=== PATIENT | female | born 1955 | race Caucasian/White ===

== ENCOUNTER → 2018-10-19 | Outpatient (CLI) | payer OTHER, SELFPAY ==
[2018-10-19 17:08] LABS: Hematocrit 43.6 % (37-47); Hemoglobin 14.8 g/dl (12.0-15.0); Mean Corp Hgb Conc 33.9 g/gl (32-36); Mean Corpuscular Hgb 31.6 pg (27.0-32.0); Mean Platelet Vol. 10.3 fl (6.2-12.0); Platelet Count 363 K/mm3 (150-450); RBC Distribution Width CV 12.2 % (11.6-14.6); RBC Distribution Width SD 40.9 fl (35.1-43.9); Red Blood Count 4.69 M/mm3 (4.2-5.4); White Blood Count 10.5 K/mm3 (4.4-11.0)
[2018-10-19 17:09] LABS: Scan Indicated on CBC? Y/N NO
[2018-10-19 17:19] LABS: Follicle Stimulating Hormone 42.3 mIU/mL
[2018-10-19 17:36] LABS: Hemoglobin A1c 8.5 % (4.2-6.3)
[2018-10-24 16:19] LABS: HPV Reflexed? NOT INDICATED
== END | disposition home or self-care (01) ==
LOC: WOBLAB 15:49
PROVIDERS: Visit Provider Obstetrics & Gynecology
DX: N92.6 Irregular menstruation, unspecified (principal); Z12.4 Encounter for screening for malignant neoplasm of cervix
CPT/HCPCS: 36415; 83001; 83036; 85027; 88175; G0145

== ENCOUNTER 2018-11-29 11:55 | Day surgery (SDC) | payer OTHER, SELFPAY ==
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
[2018-11-29] VITALS (8 sets, daily range): BP systolic 96–135; BP diastolic 71–86; PULSE 66–87; RESP 14–16; TEMP 36.3–37.9; O2SAT 92–100; BMI 28.9
--- NOTE | 2018-11-29 13:30 | EMB_PTH ---
PATIENT: PAULETET JEFFRIES LOC: [facility] [place] U#:[id number] AGE/SX: 63/F ROOM: RE11/29/[address]: Dr. eFlisa Jarquin MD : 1955 BED: DIS: 11/29/2018 SPEC #: [id number] RECD: 11/29/18 16:36 STATUS: MARILU JACY #: [id number] EARL: 11/29/18 13:[address]: Felisa Jarquin DEPT: SURGICAL PATHOLOGY RECD BY: Zhao Batista ENTERED: 11/30/18 08:02 SP TYPE: ENDOM BX/C OTHR DR: Dr. Maty Burris MD Tissues: Endometrium, NOS Procedures: Surgery Specimen Level IV HEADER OPERATION: Hysteroscopy, D & C PRE-OP DIAGNOSIS: Ovary cyst, left; endometrial hyperplasia; postmenopausal bleeding TISSUE SUBMITTED: Endometrial curettings MICROSCOPIC DIAGNOSIS Endometrium, curettings: Complex atypical hyperplasia. Rare fragments of benign squamous mucosa. AM:fernando 12/01/18 COMMENT Focal areas are suspicious for endometrial adenocarcinoma, FIGO grade1. Clinical correlation is necessary. Case has been reviewed in consultation with Dr. Benítez who concurs with the above diagnosis. IDC:GREGG MICROSCOPIC DESCRIPTION Slides are reviewed. GROSS DESCRIPTION Received in fixative is one container labeled with the patient's name and designated endometrial curettings. The specimen consists of multiple fragments of hemorrhagic soft tissue that in aggregate measure 2.5 x 2 x 0.1 cm. The entire specimen is submitted in one cassette. / GREGG:fernando 11/30/18 TC:? CPT: 74116
--- NOTE | 2018-11-29 13:43 | DCINST_ITS ---
Discharge Diet: No Restrictions Discharge Activity: May Shower, May Take a Tub Bath May resume sexual activity in: No Restrictions - when comfortable Call your doctor if you observe: Fever of 101 or Higher, Using more than one pad per hour, Uncontrolled pain Additional Instructions: Take Tylenol or ibuprofen as needed for discomfort. Allergies/Adverse Reactions: Allergies No Known Allergies Allergy (Verified 11/22/18 12:55) Medications to take at Discharge Hydroxyzine HCl 50 mg PO Q6H PRN 11/22/18 Lactobacillus Acidophilus [Acidophilus] 1 ea PO QHS 11/29/18 Thiamine HCl [B-1] 100 mg PO QHS 11/29/18 Primary Care Physician: Maty Burris MD [Primary Care Provider] - Test Results: Test results from this visit will be discussed in further detail at your follow- up appointment, if applicable. Please Follow Up With: Felisa Jarquin MD - [phone] When: in 2-3 wk for postoperative follow up visit. Proposed Discharge Date: 11/29/18
--- NOTE | 2018-11-29 16:01 | PCM.OPRPT ---
Report of Operation Date of Procedure: 11/29/18 Pre-Operative Diagnosis: postmenopausal bleeding. thickened endometrial stripe Nabothian cyst of cervix vs cervical fibroid Post-Operative Diagnosis: same Stenotic cervix. Cervical fibroid Surgery/Procedure Performed:: Dilation and curettage. Unable to perform hysteroscopy due to cervical stenosis and fibroid at posterior cervix Description of Surgical Findings:: Findings: Atrophic appearing cervix, stenotic Normal appearing endometrium. Tubal ostia visualized, atrophic Endometrial polyp, friable and removed in multiple pieces. Type of Anesthesia:: IV Sedation Specimen's removed: uterine curettings Drains: radha herman prior to case Estimated Blood Loss (mL): 10 cc Fluids Replaced: LR Description of Procedure: Narrative account After the R,B,Alternatives of the procedure were reviewed with the patient , informed consent was obtained. The patient was taken to the operating room with an IV running and placed in dorsal supine position of the operating table. She was given MAC IV sedation and repositioned to the dorsal lithotomy position and prepped and draped in the usual sterile fashion. A graves speculum was placed into the vagina and the cervix was brought into view. The cervix was atrophic appearing and hegar dilators were opened. A single toothed tenaculum was applied to the anterior lip of the cervix and then to the posterior lip of the cervix to allow cervical dilation. The cervix was then gently probed and sequentially dilated to allow admission of the sharp curette into the endometrial cavity. A sharp curettage was performed and multiple small pieces of tissue were withdrawn and set aside. Due to the presence of a posterior cervical fibroid, the cervix could not be dilated enough to allow the hysteroscopy. Several passes were performed also with the Pipelle. The uterus was probed and sounded to 7 cm with the uterine sound. Excellent hemostasis was noted. The single toothed tenaculum was removed from the cervix and a RayTec was used to remove any remaining tissue and blood from the upper vagina and cervix. The procedure was terminated. The speculum was removed. The patient was returned to dorsal supine position and awakened from IV sedation and transferred to her recovery room bed in stable condition after tolerating the procedure well. Sponge, lap, needle and instrument counts were correct x two. medications given intraoperatively included Toradol given IV. For a complete listing of the medications given intraoperatively, see the anesthesia record. - Complications none - Admit VTE Documentation VTE Present on Admission: No VTE Mechan Device Prophylaxis: SCD's VTE Pharm Prophylaxis ordered?: No
== END 2018-11-29 16:00 | disposition home or self-care (01) ==
LOC: SDC 11:56 → AC 11:57
PROVIDERS: Family Provider Family Medicine; PCP Family Medicine; Referring Provider Obstetrics & Gynecology; Visit Provider Obstetrics & Gynecology
PROC: 0UB98ZZ Excision of Uterus, Via Natural or Artificial Opening Endoscopic (ICD-10-PCS; CPT 58558; principal; 2018-11-29 13:15)
DX: N85.01 Benign endometrial hyperplasia (principal); N88.2 Stricture and stenosis of cervix uteri; F41.9 Anxiety disorder, unspecified; N83.202 Unspecified ovarian cyst, left side; R73.03 Prediabetes
CPT/HCPCS: 58120; 88305; J7120; J2405

== ENCOUNTER 2018-12-27 11:14 | Day surgery (SDC) | payer OTHER, SELFPAY ==
[2018-11-29 12:21] VITALS: BMI 28.9
--- NOTE | 2018-12-21 15:33 | EKG12_ITS ---
Test Reason : PRE-OP Blood Pressure : / mmHG Vent. Rate : 070 BPM Atrial Rate : 070 BPM P-R Int : 134 ms QRS Dur : 088 ms QT Int : 398 ms P-R-T Axes : 057 050 052 degrees QTc Int : 429 ms Normal sinus rhythm with sinus arrhythmia Low voltage QRS Borderline ECG Confirmed by BETTY SALINAS, MAGDALENA ([id number]), mapping editor АЛЕКСАНДР MARTINEZ ([id number]) on 12/26/2018 10:30:58 AM Referred By: Felisa Jarquin Confirmed By:TESHA HERNÁNDEZ MD
[2018-12-21 16:11] LABS: Hemoglobin A1c 6.1 % (4.2-6.3)
[2018-12-21 16:21] LABS: Anion Gap 11 (5-15); BUN 8 mg/dL (7-18); BUN/Creat Ratio 10.8 RATIO (10-20); Calcium,Total 9.4 mg/dL (8.5-10.1); Chloride 104 mmol/L (98-107); Creatinine, Serum 0.74 mg/dL (0.55-1.02); EST Glomerular Filtration Rate 84 mL/min (>60); Est Glom Filt Rate - Afr Amer 102 mL/min (>60); Glucose 77 mg/dL (74-106); Potassium 3.5 mmol/L (3.5-5.1); Sodium Level 140 mmol/L (136-145)
--- NOTE | 2018-12-23 08:05 | HP.PCM_ITS ---
History and Physical Date of Admission: 12/27/18 HISTORY OF PRESENT ILLNESS: On 12/21/2018, Mishel Arriaza, a 63 year old female 1 0 1 0 1, presented for: -- Pre-Op -- Mishel is being seen for pre op visit. Pt to have LAVH/BSO 12-27-18 due to PMB. Medication and allergies are up to date. Surgery papers signed and reviewed with pt. Pt is very nervous and tearful. She states the Vistaril did not help pt. AM As above. here for preop op prior to planned LAVH, BSO. She has had postmenopausal bleeding and prior D and C which showed complex hyperplasia with atypia and focus suspicious for adenocarcinoma FIGO Gr 1. Advised of all. She is extremely anxious re any medical care/procedures and had gone years without any doctor visits. Recent dx with DM and has lost weight, changed diet , and improved her HgbA1C. Vistaril not helpful with her anxiety. Will give RX for Lorazepam for prn use prior to surgery. Reviewed typical behavior of endometrial cancer, and advised very curable. Reminded her that dx may be complex hyperplasia with atypia, but either way the uterus should be removed as up to 33% will progress to endometrial cancer. Reviewed anticipated preop, operative and postop recovery. All questions answered to her satisfaction. here today also for discussion. EB ALLERGIES: No Known Drug Allergies MEDICATIONS HISTORY: Current medications prescribed by our practice are: 1. Prometrium 200 mg capsule, 1 tab po q hs 2. Vistaril 50 mg capsule, 1 po q 6 hr prn anxiety REVIEW OF SYSTEMS: GENERAL - Denies fever, or chills SKIN - Denies skin changes EYES - Denies visual changes EARS - Denies difficulty hearing NOSE - Denies nasal congestion or bleeding MOUTH - Denies sore throat or difficulty swallowing NECK - Denies pain or swelling RESPIRATORY - Denies shortness of breath or wheezing CARDIOVASCULAR - Denies palpitations or chest pain GASTROINTESTINAL - Denies nausea, vomiting, diarrhea, constipation GENITOURINARY - Denies dysuria, frequency of urination, incontinence of urine MUSCULOSKELETAL - Denies joint or muscle pain NEUROLOGICAL - Denies localized numbness or weakness PSYCHIATRIC - Denies depression or anxiety ENDOCRINE - Denies heat or cold intolerance, weight loss or gain HEMATO-IMMUNOLOGIC - Denies excessive bleeding with cuts SURGICAL HISTORY: 1. C section 1992 2. 11/29/2018 Dilation and curettage Felisa Jarquin M.D. PMB, thickened endometrial stripe on sono. Cervical fibroid noted. (unable to do the hysteroscopy 2/2 stenotic cervix and fibroid) 3. 11/29/2018 Elizabeth Jarquin M.D. 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 Drug Use - denies use of street drugs Sexual Activity - Hours Worked - 40 hours per week Spouse-Sig Other Name - Sanjuanita Spouse-Sig Other Occupation - retired Control - Vasectomy PHYSICAL EXAMINATION BP- 150/90 Sitting, Right arm, regular cuff Temp- 98.0 Taken Orally Weight- 145.80 lbs Height- 61.00 inch BMI:27.61 CONSTITUTIONAL - NAD, well nourished, and well developed HEENT - Normocephalic, PERRLA, EOMI NECK - no nuchal rigidity EXTREMITIES - No edema or calf tenderness NEUROLOGICAL - Cranial nerves II-XII grossly intact PSYCHIATRIC - A and O to time, place, person, mood and affect ASSESSMENT: 1. Endometrial Hyperplasia, Unspecified 2. Postmenopausal Bleeding PLAN BY DIAGNOSIS: 1. Endometrial Hyperplasia, Unspecified and Postmenopausal Bleeding Path results from Moses and C reviewed: complex hyperplasia with atypia (33% progress to endometrial cancer) and focus suspicious for adenocarcinoma FIGO Gr 1. Advised hysterectomy and BSO. TANYA BSO planned. Reviewed surgical procedure, as well as anticipated preop and postop recovery, activity restrictions. Extremely anxious re procedure, dx. Wanting to RTW LAITH within 2 wk after her surgery. Expresses frustration she will not know dx until final path results back. Requesting another HgbA1C level prior to surgery, along with preop labs and ECG Lorazepam 1 mg tabs to be called in for prn use anxiety prior to procedure. All questions answered to her satisfaction, consents signed. Plan LAVH, BSO as scheduled. RTO in 2 wk for postop check. The visit was approximately 30 minutes in length with most of the time spent in discussion and counseling. 2. Unspecified Ovarian Cyst, Left Side Simple appearing cyst by sono prior Planned BSO New Prescription(s): lorazepam 1 mg tablet 1 po q 6 hr prn 20 Refills 0 Medication(s) Stopped/Reason: multivitamin tablet - No Longer Needed
[2018-12-27] VITALS (11 sets, daily range): BP systolic 112–148; BP diastolic 53–76; PULSE 58–83; RESP 14–16; TEMP 36–36.6; O2SAT 93–100; BMI 27.1
--- NOTE | 2018-12-27 | HYST_PTH ---
PATIENT: PAULETTE JEFFRIES LOC: [facility] – [place] U#:[id number] AGE/SX: 63/F ROOM: RE12/27/[address]: Dr. Felisa Jarquin MD : 1955 BED: DIS: 12/28/2018 SPEC #: [id number] RECD: 12/27/18 15:25 STATUS: MARILU JACY #: [id number] EARL: 12/27/18 00:[address]: Felisa Jarquin DEPT: SURGICAL PATHOLOGY RECD BY: Hong Maloney ENTERED: 12/28/18 08:05 SP TYPE: HYSTERECT OTHR DR: Dr. Maty Burris MD Tissues: Uterus, NOS Procedures: Surgery Specimen Level V HEADER OPERATION: Hysterectomy, lap-assisted vaginal, BSO PRE-OP DIAGNOSIS: Endometrial hyperplasia; postmenopausal bleeding TISSUE SUBMITTED: Uterus, bilateral fallopian tubes MICROSCOPIC DIAGNOSIS Uterus, hysterectomy: Cervix - nabothian cysts and mild chronic inflammation. Endometrium - focal simple hyperplasia without atypia. Myometrium - leiomyomas and adenomyosis. Right fallopian tube - no pathologic change. Right ovary - corpora albicantia. Left fallopian tube - no pathologic change. Left ovary - corpora albicantia and benign inclusion cyst. AM:fernando 12/29/18 COMMENT Case has been reviewed in consultation with Dr. Benítez who concurs with the above diagnosis. IDC:GREGG MICROSCOPIC DESCRIPTION Slides are reviewed. GROSS DESCRIPTION Received in fixative is one container labeled with the patient's name and designated uterus, bilateral fallopian tubes. The specimen consists of a hysterectomy specimen consisting of uterus with cervical and attached bilateral fallopian tubes and ovaries. The uterus with cervix weighs 91 gm and measures 8.5 x 6 x 4 cm. The serosal surface is hou, glistening. The ectocervical mucosa is unremarkable. The external os is oval in contour. The endocervical canal measures 3.5 cm in length and the endocervical mucosa is hou, glistening and unremarkable. The triangular endometrial cavity measures 4 cm in length and up to 2.5 cm in width. The endometrium is hou, glistening without any mass lesion and measures 0.1 cm in thickness. Sections of the uterine wall reveal a few nodular masses. The largest mass measures 1.5 cm in greatest dimension. Sections of these masses reveal hou whorled cut surfaces without areas of hemorrhage, necrosis or cystic degeneration. The involved uterine wall measures up to 2.5 cm in thickness. The right fallopian tube measures 6 cm in length and 0.5 cm in diameter. The fimbrial end is identified. The right ovary measures 1.5 x 1 x 1 cm. Sections of fallopian tube and ovary reveals unremarkable cut surfaces. No tubo-ovarian adhesions are identified. The left fallopian tube is similar appearance to right and measures 6 cm in length and 0.6 cm in diameter. The left ovary measures 1.5 x 1.5 x 1 cm. Sections of fallopian tube and ovary reveals unremarkable cut surfaces. Also present in the container is a detached piece of soft tissue measuring 2 x 1 x 0.5 cm. Hat Brim Curler sections are submitted in 12 cassettes as follows: 1 - anterior cervix, 2 - posterior cervix, 3-5 - anterior uterine wall, 68 - posterior uterine wall (the entire endometrium is submitted), 9 - nodular masses, 10 - right fallopian tube and ovary, 11 - left fallopian tube and ovary, 12 - detached piece of soft tissue. / GREGG:fernando 12/28/18 TC:1 CPT: 79694
[2018-12-27 12:26] LABS: Bedside Glucose 61 mg/dL (70-110)
[2018-12-27] MEDS: Lactated Ringers 1,000 ML 100 ML IV (12:45)
--- NOTE | 2018-12-27 13:38 | PCM.DC.VHY ---
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 Call your doctor if you observe: Fever of 101 or Higher, Inability to have a bowel movement, Using more than one pad per hour, Uncontrolled pain Change Dressing in (Days):: 7 Remove Dressing in (days):: 7 Cleanse incision/area with: Soap & Water, Keep Dressing Clean & Dry Additional Instructions: Take Tylenol 500-1000 mg every 8 hr by mouth for milder pain. Add OxyIR 1-2 tablets by mouth every 6 hrs for more severe pain. You may also take EITHER Two Aleve or two Ibuprofen 200 mg tablets by mouth every 8 hrs for pain as needed Allergies/Adverse Reactions: Allergies No Known Allergies Allergy (Verified 12/20/18 13:43) Medications to take at Discharge Lactobacillus Acidophilus [Acidophilus] 1 ea PO QHS 11/29/18 Thiamine HCl [B-1] 100 mg PO QHS 11/29/18 Cyanocobalamin (Vitamin B-12) [Vitamin B-12] 1,000 mcg PO QODAY 12/20/18 Docusate Sodium [Colace] 100 mg PO BID #30 cap 12/27/18 Naproxen [Naprosyn] 250 - 500 mg PO TID PRN PRN #30 tab 12/27/18 Oxycodone [Oxyir] 5 - 10 mg PO Q6H PRN PRN 3 Days #15 tablet 12/27/18 Polyethylene Glycol 3350 [Miralax] 17 gm PO DAILY PRN #14 packet 12/27/18 The following prescriptions were given: Docusate Sodium [Colace] 100 mg PO BID #30 cap Transmission Status: Pending to [facility] [place] #30 Polyethylene Glycol 3350 [Miralax] 17 gm PO DAILY PRN #14 packet PRN Reason: Constipation Transmission Status: Pending to [facility] [place] #30 Naproxen [Naprosyn] 250 - 500 mg PO TID PRN PRN #30 tab PRN Reason: Mild-Mod Pain (1-510) Transmission Status: Pending to [facility] [place] #30 Oxycodone [Oxyir] 5 - 10 mg PO Q6H PRN PRN 3 Days #15 tablet PRN Reason: Mod-Severe Pain (4-1010) Transmission Status: Sent to [facility] [place] #30 Orders to be completed after discharge: 12 Lead EKG [[facility]] Time Frame: 12/20/18, Facility: [facility], Location: Cardiovascular Services Primary Care Physician: Maty Burris MD [Primary Care Provider] - Test Results: Test results from this visit will be discussed in further detail at your follow-up appointment, if applicable. Please Follow Up With: Felisa Jarquin MD - [phone] When: in two weeks for postop appointment as planned. Proposed Discharge Date: 12/28/18
[2018-12-27] MEDS: Bupiv/Epi 0.5% Mpf 30 ML Vial (14:10)
[2018-12-27] MEDS: Lactated Ringers 1,000 ML 125 ML IV ×2 (14:40→18:41)
--- NOTE | 2018-12-27 15:13 | PCM.OPRPT ---
Report of Operation Date of Procedure: 12/27/18 Pre-Operative Diagnosis: complex endometrial hyperplasia with atypia, postmenopausal bleeding Post-Operative Diagnosis: Same Surgery/Procedure Performed:: LAVH, BSO Description of Surgical Findings:: Mild uterine prolapse noted at exam under anesthesia. Uterus WNL at laparoscopy, Simple appearing L ovarian cyst noted. R ovary WNL. Fallopian tubes WNL. Minimal adhesion at RLQ between bowel and abdominal side wall. Gross inspection of bowel, omentum, liver edge WNL aircraft navigator: Ileana Rao aircraft navigator: Type of Anesthesia:: General Anesthesiologist: Gopal Parada Specimen's removed: Uterus , fallopian tubes and ovaries Drains: King 300 cc Clr yellow urine Estimated Blood Loss (mL): 50 cc Fluids Replaced: LR Description of Procedure: Narrative account: After the risks, benefits and alternatives of the procedure were reviewed with the patient , informed consent was obtained. The patient was taken to the Operative room with an IV running . She was positioned in the dorsal supine position on the operating table and given general anesthesia. Once asleep she was positioned to the dorsal lithotomy position with the arms tucked at the sides and prepped and draped in the usual sterile fashion. A King catheter was inserted to drain the bladder. The weighted speculum was placed into the vagina and a single tooth tenaculum was placed at the cervix. A Mikayla cannula was inserted into the cervix and secured into placed with the single - toothed tenaculum. Attention was then turned to the anterior abdominal wall. the answering service operator's gloved were changed and skin incisions were created at the infraumbilical and suprapubic skin and at a point approximately residential between the suprapubic and infraumbilical skin incisions. Local anesthesia was used to infiltrate the skin where the trocar incision sites were created. A transverse 5 mm infraumbilical skin incision , a transverse 5 mm suprapubic incision and an transverse 5 mm midline incision were created. A Veress needle was inserted in to the peritoneal cavity at the infraumbilical skin incision while maintaining upward traction of the anterior abdominal wall at the umbilicus. There was free drop of saline, free flow of CO2 and low opening pressure noted. Once the intraabdominal pressure had reached approximately 15 mm HG, the Veress needle was removed and a bladeless 5 mm trocar was inserted into the peritoneal cavity. Correct placement was confirmed using the laparoscope. Under direct visualization the other two 5 mm bladeless trocars were inserted into the peritoneal cavity. The fallopian tubes and ovaries were retracted medially and using a LigaSure device the infundivulopelvic ligament was divided , leaving the fallopian tube and ovary attached to each side of the uterus . The broad ligament was then divided down to the level of the round ligament on both sides. The round ligaments were divided. At this point the laparoscopic portion of the case was completed. The trocars were left in place, but the instruments were removed and gas turned off. A sterile drape was used to cover the abdomen. Attention was then turned to the vaginal portion of the case. The Mikayla cannula was removed and the single toothed tenaculum repositioned on the cervix. The cervical mucosal was then incised circumferentially using Bovie cautery and a knife. The posterior cul de sac was entered by sharp dissection with Sadler scissors and a weighted speculum was placed into the posterior cul se sac. Dissection then was initiated at the anterior cervix to enter the anterior cul se sac. The uterosacral ligaments were clamped bilaterally with curved Vicente clamps and the pedicles divided and suture ligated and tagged for later identification. Next the cardinal ligament was clamped bilaterally and divided and suture ligated. Adequate hemostasis was noted. The anterior cul de sac peritoneum was then entered by sharp dissection and a narrow Sheldon retractor was placed into the anterior cul de sac to retract the bladder out of harm's way for the remainder of the case. The uterine arteries were clamped bilaterally , divided and suture ligated. Dissection then continued along each side of the uterus. Each pedicle was secured with a Vicente clamp, divided and suture ligated until ultimately the uterine fundus was reached. The superior pedicles on each side were secured with a curved Vicente clamp and the remaining uterus and attached fallopian tubes were surgically amputated and set aside. The superior pedicle was then suture ligated, then free tied and tagged for identification. The superior pedicles were dry. There was bleeding noted along the posterior vaginal cuff . The peritoneum was then closed with a running purse string suture of 1 Vicryl, incorporating the superior pedicles and uterosacral ligament tags. Excellent hemostasis was noted. The vaginal cuff was then reapproximated using interrupted and figure of eight stitches of 1 Vicryl. Excellent hemostasis was noted. The King was attached to the King bag. and clear yellow urine returned. A second look was performed with the laparoscope: excellent hemostasis was noted at all pedicles and at the vaginal cuff. The pneumoperitoneum was reduced and all instruments and trocars were removed. The skin incisions were closed with 4-0 Monocryl in a subcuticular fashion. Sterile dressings were applied. The patient was returned to dorsal supine position and awakened from general anesthesia. She was then transferred to the recovery room bed in stable condition after tolerating the procedure well. Sponge, lap, needle and instrument counts correct times two. Medications given preop and intraoperatively included: Cefotetan 1 gm IV was given sr technical sales consultant to the operating room , Marcaine with 1/200,00 epinephrine was used as a subcutaneous injection at the trocar skin incision sites. For a complete listing of medications given preop and intraoperatively, please see the anesthesia record. - Complications None - Admit VTE Documentation VTE Present on Admission: No VTE Mechan Device Prophylaxis: SCD's VTE Pharm Prophylaxis ordered?: Yes
[2018-12-27 16:21] LABS: Bedside Glucose 124 mg/dL (70-110)
[2018-12-27] MEDS: Ketorolac 15 MG/ML Vial IV ×2 (16:25→21:20)
[2018-12-27] MEDS: Ondansetron 4 MG/2 ML Vial IV (18:33)
[2018-12-27] MEDS: Docusate Sodium 100 MG Capsule PO (21:21)
[2018-12-28 01:15] VITALS: BP 108/61; PULSE 59; RESP 16; TEMP 36.6; O2SAT 94
[2018-12-28] MEDS: Lactated Ringers 1,000 ML 125 ML IV (01:17)
[2018-12-28] MEDS: Ketorolac 15 MG/ML Vial IV (04:23)
[2018-12-28] MEDS: 0.9% NaCl Peripheral Flush Adult/Peds IV ×2 (04:23→05:57)
[2018-12-28] MEDS: Ondansetron 4 MG/2 ML Vial IV (04:27)
[2018-12-28 04:34] VITALS: BP 128/70; PULSE 67; RESP 16; TEMP 36.5; O2SAT 96
[2018-12-28 06:43] VITALS: O2SAT 95
[2018-12-28 06:51] LABS: Hematocrit 36.4 % (37-47); Hemoglobin 11.9 g/dL (12.0-15.0); Mean Corp Hgb Conc 32.7 g/dL (32-36); Mean Corpuscular Hgb 31.8 pg (27.0-32.0); Mean Corpuscular Volume 97.3 fL (81-99); Mean Platelet Vol. 10.2 fl (6.2-12.0); Platelet Count 270 K/mm3 (150-450); RBC Distribution Width CV 12.7 % (11.6-14.6); RBC Distribution Width SD 45.4 fl (35.1-43.9); Red Blood Count 3.74 M/mm3 (4.2-5.4); White Blood Count 12.3 K/mm3 (4.4-11.0)
[2018-12-28 07:21] LABS: Creatinine, Serum 0.67 mg/dL (0.55-1.02); EST Glomerular Filtration Rate 94 mL/min (>60); Est Glom Filt Rate - Afr Amer 114 mL/min (>60)
--- NOTE | 2018-12-28 08:21 | PCM.PN.OB ---
Subjective: POD#1 TANYA BSO Doing well. Voiding after catheter out. mild nausea during night, resolved. has ordered reg breakfast. Pain control adequate, minimal pain. - Physical Exam General: Alert, Oriented x3, Cooperative, No apparent distress HEENT: Atraumatic, EOMI Neck: Supple Abdomen: Soft - L/S incision op sites CDI Extremities: No clubbing, No cyanosis, No edema - SCDs on but not active Psych/Mental Status: Normal Affect Vital Signs Temp Pulse Resp BP Pulse Ox 97.7 F L 67 16 128/70 H 95 12/28/18 04:34 12/28/18 04:34 12/28/18 04:34 12/28/18 04:34 12/28/18 06:43 Oxygen Flow Rate (L/min) 2 Oxygen Delivery Method Room Air Weight: 72.1 kg Body Mass Index (BMI) 30.0 Finger Stick Blood Glucose 124 Intake and Output for Last 24 Hours 12/26/12/27/18 12/28/18 23:59 23:59 23:59 Intake Total 2549.08 / 2549.08 1629.17 / 1629.17 Output Total 675 / 675 450 / 450 Balance 1874.08 / 1874.08 1179.17 / 1179.17 Laboratory Tests Past 24 Hrs 12/28/18 12/28/18 06:40 06:40 WBC 12.3 H RBC 3.74 L Hgb 11.9 L Hct 36.4 L MCV 97.3 MCH 31.8 MCHC 32.7 RDW Std Deviation 45.4 H RDW Coeff of Barbara 12.7 Plt Count 270 MPV 10.2 Creatinine 0.67 Estim Creat Clear Calc 65.70 Est GFR (MDRD) Af Amer 114 Est GFR (MDRD) Non-Af 94 POC Glucose 12/27/18 12/27/18 16:16 12:08 POC Glucose 124 H 61 L Medical Necessity - Tobacco Use Smoking Status: Never smoker Assessment/Plan POD#1 TANYA BSO Stable postop. Dischg home today. RTO In 2 wk for postop check up. Will call with path results as available.
[2018-12-28 09:15] VITALS: BP 106/61; PULSE 61; RESP 18; TEMP 36.8; O2SAT 95
[2018-12-28] MEDS: Docusate Sodium 100 MG Capsule PO (09:17)
== END 2018-12-28 09:40 | disposition home or self-care (01) ==
LOC: SDC 11:14 → AC 11:16 → MS3 16:04
PROVIDERS: Anesthesiology; Family Provider Family Medicine; PCP Family Medicine; Referring Provider Obstetrics & Gynecology; Visit Provider Obstetrics & Gynecology
PROC: 0UT9FZZ Resection of Uterus, Via Natural or Artificial Opening With Percutaneous Endoscopic Assistance (ICD-10-PCS; CPT 58552; principal; 2018-12-27 13:10)
DX: N72 Inflammatory disease of cervix uteri (principal); N85.00 Endometrial hyperplasia, unspecified; N80.0 Endometriosis of uterus; D25.9 Leiomyoma of uterus, unspecified; N88.8 Other specified noninflammatory disorders of cervix uteri; N83.292 Other ovarian cyst, left side; N83.291 Other ovarian cyst, right side; N83.202 Unspecified ovarian cyst, left side; N81.4 Uterovaginal prolapse, unspecified; E11.9 Type 2 diabetes mellitus without complications; F41.9 Anxiety disorder, unspecified; Z79.899 Other long term (current) drug therapy
CPT/HCPCS: 00840; 58552; 36415; 80048; 82565; 82962; 83036; 85027; 88307; 93005; J7120; A4216; J2405

== ENCOUNTER → 2019-02-06 | Outpatient (CLI) | payer OTHER, SELFPAY ==
[2019-02-06 08:14] LABS: ALB/GLOB Ratio 1.1 RATIO (0.9-2.4); AST(SGOT) 19 U/L (15-37); Alanine Aminotransfer ALT/SGPT 19 U/L (13-56); Alkaline Phosphatase 89 U/L (45-117); Anion Gap 9 (5-15); BUN 11 mg/dL (7-18); BUN/Creat Ratio 15.1 RATIO (10-20); Calcium,Total 9.2 mg/dL (8.5-10.1); Chloride 105 mmol/L (98-107); Cholesterol 218 mg/dL (200); Creatinine, Serum 0.73 mg/dL (0.55-1.02); EST Glomerular Filtration Rate 86 mL/min (>60); Est Glom Filt Rate - Afr Amer 104 mL/min (>60); Globulin 3.8 g/dL (2.2-4.2); Glucose 88 mg/dL (74-106); High Density Lipoprotein 43 mg/dL; Microalbumin,Random Urine 16.2 mg/L (NO RANGE EST.); Microalbumin:Creatinine Ratio 7.4 mg/g CRE (<30 mg/g CRE); Protein, Total 7.8 g/dL (6.4-8.2); Sodium Level 140 mmol/L (136-145); Triglycerides 115 mg/dL; Very Low Density Lipoprotein 23 mg/dL (5-40)
[2019-02-06 08:48] LABS: Hemoglobin A1c 5.4 % (4.2-6.3)
== END | disposition home or self-care (01) ==
PROVIDERS: Family Provider Family Medicine; PCP Family Medicine; Referring Provider Family Medicine; Visit Provider Family Medicine
DX: E11.9 Type 2 diabetes mellitus without complications (principal)
CPT/HCPCS: 36415; 80053; 80061; 82043; 82570; 83036

== ENCOUNTER → 2019-02-16 | Outpatient (CLI) | payer OTHER, SELFPAY ==
[2019-02-19 10:33] LABS: C-Peptide 2.5 ng/mL (1.1-4.4)
== END | disposition home or self-care (01) ==
LOC: LAB.FUTURE 09:31
PROVIDERS: Family Provider Family Medicine; PCP Family Medicine; Visit Provider Family Medicine
DX: E11.9 Type 2 diabetes mellitus without complications (principal)
CPT/HCPCS: 36415; 84681

== ENCOUNTER → 2019-03-27 07:22 | Outpatient (CLI) | payer OTHER, SELFPAY ==
--- NOTE | 2019-03-27 06:58 | BI_ITS ---
MAMMOGRAPHY - BILATERAL SCREENING REASON FOR EXAM: Female, 64 years old. Routine annual screening examination. PERTINENT HISTORY: Non-contributory. TECHNIQUE: Digital bilateral breast myla (3D mammographic acquisition) in the CC and MLO projections. 2-D mediolateral oblique (MLO) and craniocaudad (CC) views of both breasts were obtained. CAD: Full Field Digital Mammography with Computer Added Detection was performed. COMPARISON: None. Baseline examination. FINDINGS: Breast Composition: The breasts are extremely dense, which lowers the sensitivity of mammography. There are no dominant masses or suspicious calcifications. No other significant abnormalities are identified. BI/SCREEN MAMM (CAD) W/MYLA BILAT IMPRESSION: Negative screening mammogram. Yearly followup mammogram recommended. (A) ASSESSMENT CATEGORY: BIRADS Category 1: Negative. A letter regarding these results will be sent to the patient by the facility within 30 days. Approximately 10% of breast cancers are not detected by mammography. A normal mammogram should not delay biopsy of a clinically suspicious abnormality. [id number] Electronically Signed: Yinka Gonzales, at 8:39 EST , Service support ,
== END ==
PROVIDERS: Family Provider Family Medicine; PCP Family Medicine; Referring Provider Obstetrics & Gynecology; Visit Provider Obstetrics & Gynecology
DX: Z12.31 Encounter for screening mammogram for malignant neoplasm of breast (principal)
CPT/HCPCS: 77063; 77067

== ENCOUNTER → 2019-05-12 07:00 | Outpatient (CLI) | payer OTHER, SELFPAY ==
[2019-05-12 07:47] LABS: Absolute Lymphocyte Count 2.66 X10^3/uL (0.83-4.51); Absolute Neutrophil Count 3.8 X10^3/uL (2.0-7.7); Basophil# 0.06 X10^3/uL; Basophil% 0.8 % (0-1); Eosinophils% 1.4 % (0-5); Hematocrit 44.3 % (37-47); Hemoglobin 14.4 g/dL (12.0-15.0); Lymphocyte # 2.66 X10^3/ul (4.0); Lymphocyte % 36.4 % (19-41); Mean Corp Hgb Conc 32.5 g/dL (32-36); Mean Corpuscular Hgb 32.3 pg (27.0-32.0); Mean Corpuscular Volume 99.3 fL (81-99); Mean Platelet Vol. 9.9 fl (6.2-12.0); Monocyte# 0.62 X10^3/uL; Monocyte% 8.5 % (0-10); NRBC Flagged by Analyzer 0 % (0-5); Neutrophil # 3.84 X10^3/uL (2.7-7.7); Neutrophil % 52.5 % (47-70); Platelet Count 326 K/mm3 (150-450); RBC Distribution Width CV 11.9 % (11.6-14.6); RBC Distribution Width SD 43.2 fl (35.1-43.9); Red Blood Count 4.46 M/mm3 (4.2-5.4); White Blood Count 7.3 K/mm3 (4.4-11.0)
[2019-05-12 08:04] LABS: Free T3 2.5 pg/mL (2.18-3.98); T4 Free Direct 0.94 ng/dL (0.76-1.46); Thyroid Stim Hormone (TSH) 2.42 uIU/mL (0.358-3.74)
== END ==
PROVIDERS: PCP Family Medicine; Referring Provider Family Medicine; Visit Provider Family Medicine
DX: L65.9 Nonscarring hair loss, unspecified (principal)
CPT/HCPCS: 36415; 84439; 84443; 84481; 85025

== ENCOUNTER → 2020-01-02 | Outpatient (CLI) | payer OTHER, SELFPAY ==
[2020-01-02 07:14] LABS: Absolute Lymphocyte Count 2.62 X10^3/uL (0.83-4.51); Absolute Neutrophil Count 2.9 X10^3/uL (2.0-7.7); Basophil# 0.07 X10^3/uL; Basophil% 1.1 % (0-1); Eosinophil# 0.13 X10^3/uL; Eosinophils% 2.1 % (0-5); Hematocrit 44.7 % (37-47); Hemoglobin 14.4 g/dL (12.0-15.0); Lymphocyte # 2.62 X10^3/ul (4.0); Lymphocyte % 41.4 % (19-41); Mean Corp Hgb Conc 32.2 g/dL (32-36); Mean Corpuscular Hgb 31.1 pg (27.0-32.0); Mean Corpuscular Volume 96.5 fL (81-99); Mean Platelet Vol. 9.6 fl (6.2-12.0); Monocyte# 0.59 X10^3/uL; Monocyte% 9.3 % (0-10); NRBC Flagged by Analyzer 0 % (0-5); Neutrophil # 2.91 X10^3/uL (2.7-7.7); Neutrophil % 45.9 % (47-70); Platelet Count 343 K/mm3 (150-450); RBC Distribution Width CV 11.9 % (11.6-14.6); RBC Distribution Width SD 42.9 fl (35.1-43.9); Red Blood Count 4.63 M/mm3 (4.2-5.4); White Blood Count 6.3 K/mm3 (4.4-11.0)
[2020-01-02 07:39] LABS: Microalbumin,Random Urine 10.4 mg/L (NO RANGE EST.); Microalbumin:Creatinine Ratio 6.8 mg/g CRE (<30 mg/g CRE)
[2020-01-02 07:53] LABS: ALB/GLOB Ratio 1.1 RATIO (0.9-2.4); AST(SGOT) 22 U/L (15-37); Alanine Aminotransfer ALT/SGPT 30 U/L (13-56); Albumin, Serum 4.2 g/dL (3.2-5.0); Alkaline Phosphatase 71 U/L (45-117); Anion Gap 4 (5-15); BUN 18 mg/dL (7-18); BUN/Creat Ratio 26.7 RATIO (10-20); Calcium,Total 9.6 mg/dL (8.5-10.1); Chloride 109 mmol/L (98-107); Cholesterol 219 mg/dL (200); Creatinine, Serum 0.67 mg/dL (0.55-1.02); EST Glomerular Filtration Rate 94 mL/min (>60); Est Glom Filt Rate - Afr Amer 113 mL/min (>60); Globulin 3.7 g/dL (2.2-4.2); Glucose 98 mg/dL (74-106); Hemoglobin A1c 5.3 % (3.8-5.6); High Density Lipoprotein 72 mg/dL; Potassium 3.7 mmol/L (3.5-5.1); Protein, Total 7.9 g/dL (6.4-8.2); Sodium Level 142 mmol/L (136-145); Triglycerides 83 mg/dL; Very Low Density Lipoprotein 17 mg/dL (5-40)
== END | disposition home or self-care (01) ==
PROVIDERS: PCP Family Medicine; Referring Provider Family Medicine; Visit Provider Family Medicine
DX: E11.9 Type 2 diabetes mellitus without complications (principal); E53.8 Deficiency of other specified B group vitamins
CPT/HCPCS: 36415; 80053; 80061; 82043; 82570; 83036; 85025

== ENCOUNTER → 2021-10-15 | Outpatient (CLI) | payer MEDICARE, SELFPAY ==
[2021-10-15 11:53] LABS: Absolute Lymphocyte Count 2.29 X10^3/uL (0.83-4.51); Absolute Neutrophil Count 3.8 X10^3/uL (2.0-7.7); Basophil# 0.08 X10^3/uL; Basophil% 1.1 % (0-1); Eosinophil# 0.08 X10^3/uL; Eosinophils% 1.1 % (0-5); Hematocrit 40.6 % (37-47); Hemoglobin 13.5 g/dL (12.0-15.0); Lymphocyte # 2.29 X10^3/ul (0.83-4.51); Lymphocyte % 32.9 % (19-41); Mean Corp Hgb Conc 33.3 g/dL (32-36); Mean Corpuscular Volume 96.2 fL (81-99); Mean Platelet Vol. 9.5 fl (6.2-12.0); Monocyte# 0.66 X10^3/uL; Monocyte% 9.5 % (0-10); NRBC Flagged by Analyzer 0 % (0-5); Neutrophil # 3.84 X10^3/uL (2.7-7.7); Neutrophil % 55.1 % (47-70); Platelet Count 296 K/mm3 (150-450); RBC Distribution Width CV 12.1 % (11.6-14.6); RBC Distribution Width SD 42.5 fl (35.1-43.9); Red Blood Count 4.22 M/mm3 (4.2-5.4)
[2021-10-15 12:25] LABS: ALB/GLOB Ratio 1.2 RATIO (0.9-2.4); AST(SGOT) 15 U/L (15-37); Alanine Aminotransfer ALT/SGPT 20 U/L (13-56); Albumin, Serum 4.1 g/dL (3.2-5.0); Alkaline Phosphatase 71 U/L (45-117); Anion Gap 6 (5-15); BUN 16 mg/dL (7-18); BUN/Creat Ratio 24.7 RATIO (10-20); Calcium,Total 9.4 mg/dL (8.5-10.1); Chloride 107 mmol/L (98-107); Cholesterol 238 mg/dL (200); Creatinine, Serum 0.65 mg/dL (0.55-1.02); EST Glomerular Filtration Rate 97 mL/min (>60); Est Glom Filt Rate - Afr Amer 118 mL/min (>60); Globulin 3.3 g/dL (2.2-4.2); Glucose 88 mg/dL (74-106); High Density Lipoprotein 63 mg/dL; Potassium 3.7 mmol/L (3.5-5.1); Protein, Total 7.4 g/dL (6.4-8.2); Sodium Level 140 mmol/L (136-145); Triglycerides 84 mg/dL; Very Low Density Lipoprotein 17 mg/dL (5-40)
== END | disposition home or self-care (01) ==
PROVIDERS: PCP Family Medicine; Referring Provider Family Medicine; Visit Provider Family Medicine
DX: Z00.00 Encounter for general adult medical examination without abnormal findings (principal); E11.9 Type 2 diabetes mellitus without complications
CPT/HCPCS: 36415; 80053; 80061; 85025

== ENCOUNTER → 2021-11-04 | Outpatient (CLI) | payer MEDICARE, SELFPAY ==
--- NOTE | 2021-11-04 09:49 | BI_ITS ---
MAMMOGRAPHY - BILATERAL SCREENING REASON FOR EXAM: Female, 66 years old. Routine annual screening examination. PERTINENT HISTORY: Non-contributory. TECHNIQUE: Digital bilateral breast myla (3D mammographic acquisition) in the CC and MLO projections. 2-D mediolateral oblique (MLO) and craniocaudad (CC) views of both breasts were obtained. CAD: Full Field Digital Mammography with Computer Added Detection was performed. COMPARISON: Comparison is made with prior study dated 03/27/2019. FINDINGS: Breast Composition: The breasts are extremely dense, which lowers the sensitivity of mammography. There are no dominant masses or suspicious calcifications. No other significant abnormalities are identified. There has been no significant change since the prior study. BI/SCRN MAMM (CAD)W/MYLA BILAT IMPRESSION: Stable bilateral screening mammogram. Yearly follow-up mammogram recommended. (A) ASSESSMENT CATEGORY: BIRADS Category 1: Negative. A letter regarding these results will be sent to the patient by the facility within 30 days. Approximately 10% of breast cancers are not detected by mammography. A normal mammogram should not delay biopsy of a clinically suspicious abnormality. [id number] Electronically Signed: Yinka Gonzales MD at 11:10 EDT ,
--- NOTE | 2021-11-04 09:53 | BD_ITS ---
STUDY: DUAL ENERGY X-RAY ABSORPTIOMETRY / DXA REASON FOR EXAM: Female, 66 years old. M810. Patient is postmenopausal. TECHNIQUE: Bone Mineral Density (BMD) measurements of lumbar spine and bilateral hips were obtained. COMPARISON: None. FINDINGS: Lumbar Spine (L1-L4): g/cm2 (1.220) / T-score (1.8) / Z-score (3.6) Findings are suggestive of normal bone density with a low fracture risk. Left Femur Total: g/cm2 (0.889) / T-score (-0.4) / Z-score (0.8) Left Femoral Neck: g/cm2 (0.777) / T-score (-0.6) / Z-score (0.9) Right Femur Total: g/cm2 (0.799) / T-score (-1.2) / Z-score (0.1) Right Femoral Neck: g/cm2 (0.689) / T-score (-1.4) / Z-score (0.1) BD/Dexa Bone Density Study IMPRESSION: The patient is considered osteopenic as outlined below according to World [employer] Organization (WHO) criteria with a low fracture risk. Reference Information: The T-score is the number of standard deviations above or below the standard which is normal for young adults at their peak bone mineral density. The World Health Organization (WHO) interprets the T-scores as follows: Above -1 Normal bone density Between -1 and -2.5 Osteopenia Equal to / or below -2.5 Osteoporosis As a practical clinical guideline, osteopenia may be graded as follows: Mild -1 through -1.5 Moderate -1.6 through -2.0 Severe -2.1 through -2.4 The Z-score is the number of standard deviations above or below age-matched controls. A Z-score of less than -1.5 would be considered abnormal. References: 1. NIH Osteoporosis and Related Bone Diseases www osteo.org 2. International Society for Clinical Densitometry www iscd.org 3. National Osteoporosis Foundation www nof.org Electronically Signed: Yinka Gonzales MD at 11:59 EDT ,
== END | disposition home or self-care (01) ==
LOC: OPBD 09:48
PROVIDERS: PCP Family Medicine; Visit Provider Family Medicine
DX: Z12.31 Encounter for screening mammogram for malignant neoplasm of breast (principal); M85.80 Other specified disorders of bone density and structure, unspecified site; Z78.0 Asymptomatic menopausal state; Z13.820 Encounter for screening for osteoporosis; M81.0 Age-related osteoporosis without current pathological fracture
CPT/HCPCS: 77063; 77067; 77080

== ENCOUNTER 2022-06-01 11:13 | Outpatient (CLI) | payer MEDICARE, SELFPAY ==
[2022-06-01 12:40] LABS: Absolute Lymphocyte Count 2.37 X10^3/uL (0.83-4.51); Absolute Neutrophil Count 3.4 X10^3/uL (2.0-7.7); Basophil# 0.06 X10^3/uL; Basophil% 0.9 % (0-1); Eosinophils% 1.5 % (0-5); Erythrocyte Sedimentation Rate 4 mm/hr (0-30); Hematocrit 40.1 % (37-47); Hemoglobin 13.2 g/dL (12.0-15.0); Lymphocyte # 2.37 X10^3/ul (0.83-4.51); Lymphocyte % 36.5 % (19-41); Mean Corp Hgb Conc 32.9 g/dL (32-36); Mean Corpuscular Hgb 31.9 pg (27.0-32.0); Mean Corpuscular Volume 96.9 fL (81-99); Mean Platelet Vol. 10.1 fl (6.2-12.0); Monocyte% 9.2 % (0-10); NRBC Flagged by Analyzer 0 % (0-5); Neutrophil # 3.35 X10^3/uL (2.7-7.7); Neutrophil % 51.7 % (47-70); Platelet Count 311 K/mm3 (150-450); RBC Distribution Width SD 42.5 fl (35.1-43.9); Red Blood Count 4.14 M/mm3 (4.2-5.4); White Blood Count 6.5 K/mm3 (4.4-11.0)
[2022-06-01 13:22] LABS: CRP < 2.90 mg/L (0.0-3.0); Rheumatoid Factor < 10.0 IU/mL (<15); Uric Acid 3.8 mg/dL (2.6-6.0)
[2022-06-02 18:36] LABS: ANTINUCLEAR ANTIBODIES DIRECT Positive (Negative)
== END 2022-06-01 23:59 | disposition home or self-care (01) ==
LOC: LAB 11:16
PROVIDERS: PCP Family Medicine; Visit Provider Orthopaedic Surgery
DX: M67.441 Ganglion, right hand (principal); M06.9 Rheumatoid arthritis, unspecified
CPT/HCPCS: 36415; 84550; 85025; 85652; 86038; 86140; 86431

== ENCOUNTER → 2022-11-16 | Outpatient (CLI) | payer MEDICARE, SELFPAY ==
[2022-11-16 10:19] LABS: Absolute Lymphocyte Count 1.89 X10^3/uL (0.83-4.51); Absolute Neutrophil Count 3.4 X10^3/uL (2.0-7.7); Basophil# 0.08 X10^3/uL; Basophil% 1.3 % (0-1); Eosinophil# 0.08 X10^3/uL; Eosinophils% 1.3 % (0-5); Hematocrit 41.4 % (37-47); Hemoglobin 13.8 g/dL (12.0-15.0); Lymphocyte # 1.89 X10^3/ul (0.83-4.51); Lymphocyte % 31.7 % (19-41); Mean Corp Hgb Conc 33.3 g/dL (32-36); Mean Corpuscular Hgb 32.3 pg (27.0-32.0); Mean Platelet Vol. 9.6 fl (6.2-12.0); Monocyte# 0.49 X10^3/uL; Monocyte% 8.2 % (0-10); NRBC Flagged by Analyzer 0 % (0-5); Neutrophil # 3.42 X10^3/uL (2.7-7.7); Neutrophil % 57.5 % (47-70); Platelet Count 282 K/mm3 (150-450); RBC Distribution Width CV 12.1 % (11.6-14.6); RBC Distribution Width SD 43.6 fl (35.1-43.9); Red Blood Count 4.27 M/mm3 (4.2-5.4)
[2022-11-16 10:41] LABS: Microalbumin,Random Urine 51.3 mg/L (NO RANGE EST.); Microalbumin:Creatinine Ratio 33.8 mg/g CRE (<30 mg/g CRE)
[2022-11-16 10:49] LABS: ALB/GLOB Ratio 1.2 RATIO (0.9-2.4); AST(SGOT) 15 U/L (15-37); Alanine Aminotransfer ALT/SGPT 16 U/L (13-56); Albumin, Serum 4.1 g/dL (3.2-5.0); Alkaline Phosphatase 64 U/L (45-117); Anion Gap 4 (5-15); BUN 16 mg/dL (7-18); BUN/Creat Ratio 24.2 RATIO (10-20); Calcium,Total 9.4 mg/dL (8.5-10.1); Chloride 110 mmol/L (98-107); Cholesterol 213 mg/dL (200); Creatinine, Serum 0.66 mg/dL (0.55-1.02); EST Glomerular Filtration Rate 95 mL/min (>60); Est Glom Filt Rate - Afr Amer 115 mL/min (>60); Globulin 3.5 g/dL (2.2-4.2); Glucose 82 mg/dL (74-106); High Density Lipoprotein 67 mg/dL; Potassium 3.7 mmol/L (3.5-5.1); Protein, Total 7.6 g/dL (6.4-8.2); Sodium Level 141 mmol/L (136-145); Triglycerides 69 mg/dL; Very Low Density Lipoprotein 14 mg/dL (5-40)
[2022-11-16 10:55] LABS: Hemoglobin A1c 5.2 % (3.8-5.6)
== END | disposition home or self-care (01) ==
LOC: LAB 09:46
PROVIDERS: PCP Family Medicine; Referring Provider Family Medicine; Visit Provider Family Medicine
DX: Z00.00 Encounter for general adult medical examination without abnormal findings (principal); E11.9 Type 2 diabetes mellitus without complications
CPT/HCPCS: 36415; 80053; 80061; 82043; 82570; 83036; 85025

== ENCOUNTER → 2022-11-25 | Outpatient (CLI) | payer MEDICARE, SELFPAY ==
[2022-11-25 13:34] LABS: Microalbumin,Random Urine 10.6 mg/L (NO RANGE EST.)
== END | disposition home or self-care (01) ==
LOC: BFHLAB 09:13
PROVIDERS: PCP Family Medicine; Visit Provider Family Medicine
DX: E11.9 Type 2 diabetes mellitus without complications (principal)
CPT/HCPCS: 82043; 82570

== ENCOUNTER → 2023-01-27 | Outpatient (CLI) | payer MEDICARE, SELFPAY ==
[2023-01-27 18:14] LABS: Color, Urine Yellow (Yellow); Glucose, Dipstick Normal (Normal); Ketone-Dipstick Negative (Negative); Leukocyte Esterase-Dipstick 100 /ul (Negative); Nitrite-Dipstick Negative (Negative); Occult Blood-Urine Negative /ul (Negative); Protein-Dipstick Negative (Negative); Specific Gravity, Urine 1.015 (1.002-1.030); Urine Bilirubin Dipstick Negative (Negative); Urine Clarity Clear (Clear); Urine Urobilinogen Normal (Normal)
[2023-01-27 18:27] LABS: Microalbumin,Random Urine 12.8 mg/L (NO RANGE EST.)
== END | disposition home or self-care (01) ==
LOC: BFHLAB 15:14
PROVIDERS: PCP Family Medicine; Referring Provider Family Medicine; Visit Provider Family Medicine
DX: E11.29 Type 2 diabetes mellitus with other diabetic kidney complication (principal); R80.9 Proteinuria, unspecified; R30.0 Dysuria
CPT/HCPCS: 81002; 82043; 82570; 87077; 87086; 87088; 87186

== ENCOUNTER → 2023-06-15 | Outpatient (CLI) | payer MEDICARE, SELFPAY | END | disposition home or self-care (01) | LOC: LABSPEC 15:00 | PROVIDERS: PCP Family Medicine; Referring Provider Nurse Practitioner Family; Visit Provider Nurse Practitioner Family | DX: N39.0 Urinary tract infection, site not specified (principal) | CPT/HCPCS: 87086; 87088; 87186 ==

== ENCOUNTER → 2023-10-28 | Outpatient (CLI) | payer MEDICARE, SELFPAY | END | disposition home or self-care (01) | PROVIDERS: PCP Family Medicine; Visit Provider Nurse Practitioner Family | DX: N39.0 Urinary tract infection, site not specified (principal) | CPT/HCPCS: 87086 ==

== ENCOUNTER → 2023-11-29 | Outpatient (CLI) | payer MEDICARE, SELFPAY ==
[2023-11-29 17:28] LABS: Absolute Lymphocyte Count 2.63 X10^3/uL (0.83-4.51); Absolute Neutrophil Count 4.4 X10^3/uL (2.0-7.7); Basophil# 0.07 X10^3/uL; Basophil% 0.9 % (0-1); Eosinophils% 1.3 % (0-5); Hematocrit 39.2 % (37-47); Hemoglobin 12.8 g/dL (12.0-15.0); Lymphocyte # 2.63 X10^3/ul (0.83-4.51); Lymphocyte % 33.2 % (19-41); Mean Corp Hgb Conc 32.7 g/dL (32-36); Mean Corpuscular Hgb 31.1 pg (27.0-32.0); Mean Corpuscular Volume 95.4 fL (81-99); Mean Platelet Vol. 9.7 fl (6.2-12.0); Monocyte# 0.64 X10^3/uL; Monocyte% 8.1 % (0-10); NRBC Flagged by Analyzer 0 % (0-5); Neutrophil # 4.44 X10^3/uL (2.7-7.7); Neutrophil % 56.1 % (47-70); Platelet Count 283 K/mm3 (150-450); RBC Distribution Width CV 12.1 % (11.6-14.6); RBC Distribution Width SD 42.7 fl (35.1-43.9); Red Blood Count 4.11 M/mm3 (4.2-5.4); White Blood Count 7.9 K/mm3 (4.4-11.0)
[2023-11-29 18:01] LABS: Creatinine, Urine (random) < 13.00 mg/dL (NO RANGE EST.); Microalbumin,Random Urine < 5.0 mg/L (NO RANGE EST.)
[2023-11-29 18:02] LABS: ALB/GLOB Ratio 1.3 RATIO (0.9-2.4); AST(SGOT) 18 U/L (15-37); Alanine Aminotransfer ALT/SGPT 16 U/L (13-56); Albumin, Serum 4.1 g/dL (3.2-5.0); Alkaline Phosphatase 55 U/L (45-117); Anion Gap 8 (5-15); BUN 11 mg/dL (7-18); BUN/Creat Ratio 19.7 RATIO (10-20); Calcium,Total 9.4 mg/dL (8.5-10.1); Chloride 104 mmol/L (98-107); Cholesterol 216 mg/dL (200); Creatinine, Serum 0.56 mg/dL (0.55-1.02); EST Glomerular Filtration Rate 115 mL/min (>60); Est Glom Filt Rate - Afr Amer 139 mL/min (>60); Globulin 3.1 g/dL (2.2-4.2); Glucose 76 mg/dL (74-106); High Density Lipoprotein 72 mg/dL; Potassium 3.7 mmol/L (3.5-5.1); Protein, Total 7.2 g/dL (6.4-8.2); Sodium Level 139 mmol/L (136-145); Triglycerides 55 mg/dL; Very Low Density Lipoprotein 11 mg/dL (5-40)
== END | disposition home or self-care (01) ==
LOC: LAB 16:12
PROVIDERS: PCP Family Medicine; Referring Provider Family Medicine; Visit Provider Family Medicine
DX: Z00.00 Encounter for general adult medical examination without abnormal findings (principal); E11.9 Type 2 diabetes mellitus without complications
CPT/HCPCS: 36415; 80053; 80061; 82043; 82570; 85025

== ENCOUNTER → 2023-12-08 | Outpatient (CLI) | payer MEDICARE, SELFPAY ==
--- NOTE | 2023-12-08 10:05 | BI_ITS ---
MAMMOGRAPHY - BILATERAL SCREENING REASON FOR EXAM: Female, 68 years old. Routine annual screening examination. PERTINENT HISTORY: Non-contributory. TECHNIQUE: Digital bilateral breast myla (3D mammographic acquisition) in the CC and MLO projections. 2-D mediolateral oblique (MLO) and craniocaudad (CC) views of both breasts were obtained. CAD: Full Field Digital Mammography with Computer Added Detection was performed. COMPARISON: Comparison is made with prior study dated November 04, 2021 and March 27, 2019. FINDINGS: Breast Composition: The breasts are extremely dense, which lowers the sensitivity of mammography. There are no dominant masses or suspicious calcifications. No other significant abnormalities are identified. There has been no significant change since the prior study. BI/SCRN MAMM (CAD)W/MYLA BILAT IMPRESSION: Stable bilateral screening mammogram. Yearly follow-up mammogram recommended. (A) ASSESSMENT CATEGORY: BIRADS Category 1: Negative. A letter regarding these results will be sent to the patient by the facility within 30 days. Approximately 10% of breast cancers are not detected by mammography. A normal mammogram should not delay biopsy of a clinically suspicious abnormality. [id number] Electronically Signed: Yinka Gonzales MD at 10:52 EDT ,
== END | disposition home or self-care (01) ==
LOC: OPBI 10:04
PROVIDERS: PCP Family Medicine; Referring Provider Family Medicine; Visit Provider Family Medicine
DX: Z12.31 Encounter for screening mammogram for malignant neoplasm of breast (principal)
CPT/HCPCS: 77063; 77067